=== PATIENT | male | born 1990 | race Caucasian/White ===

== ENCOUNTER → 2016-06-09 | Outpatient (CLI) | payer BC, MEDICAID ==
[2016-06-09 07:54] LABS: BASOPHILS % (AUTO) 0 % (0-2); EOSINOPHILS # (AUTO) 0.2 10^3uL; EOSINOPHILS % (AUTO) 2 % (0-4); LYMPHOCYTES # (AUTO) 4.1 X10^3; MEAN CORPUSCULAR HEMOGLOBIN 30.3 PG (26.0-34.0); MEAN CORPUSCULAR VOLUME 84 FL (80-100); MONOCYTES # (AUTO) 0.7 X10^3; MONOCYTES % (AUTO) 8 % (3-11); NEUTROPHILS # (AUTO) 3.5 X10^3; NEUTROPHILS % (AUTO) 41 % (51-67); PLATELET COUNT 320 10^3uL (150-450); WHITE BLOOD COUNT 8.54 10^3uL (4.0-11.0)
[2016-06-09 08:04] LABS: MEAN CORPUSCULAR HGB CONC 36.1 g/dL (31.0-37.0)
[2016-06-09 08:18] LABS: ALBUMIN 4.8 g/dL (3.4-5.0); ANION GAP 17.9 MEQ/L (3-15); CALCULATED IONIZED CALCIUM 3.9 mg/dL (3.8-4.6); TOTAL PROTEIN 8.4 g/dL (6.4-8.5)
[2016-06-10 16:26] LABS: LEVETIRACETAM LEVEL 6.3 mcg/mL
== END ==
LOC: LAB 07:33
PROVIDERS: ATTEND Nurse Practitioner Family
DX: I10 Essential (primary) hypertension (principal); G40.409 Other generalized epilepsy and epileptic syndromes, not intractable, without status epilepticus; E78.1 Pure hyperglyceridemia
CPT/HCPCS: 36415; 80053; 80061; 80177; 80183; 85025

== ENCOUNTER → 2016-06-11 | Outpatient (CLI) | payer BC, MEDICAID ==
[2016-06-11 08:37] LABS: BILIRUBIN,URINE Negative (Negative); CLARITY,URINE Cloudy; COLOR,URINE Yellow; GLUCOSE, URINE (UA) Negative (Negative); LEUKOCYTE ESTERASE, URINE Trace (Negative); UROBILINOGEN,URINE 0.2 mg/dL (0.2-1.0)
[2016-06-11 09:26] LABS: AMORPHOUS SEDIMENT,UR 3+ /HPF; RBC,URINE None Seen /HPF; URINE CENTRIFUGED VOLUME 12 mL
== END ==
LOC: LAB 08:24
PROVIDERS: ATTEND Nurse Practitioner Family
DX: N39.0 Urinary tract infection, site not specified (principal)
CPT/HCPCS: 81003; 81015; 87077; 87088; 87186

== ENCOUNTER → 2016-09-27 | Outpatient (REF) | payer BC, MEDICAID ==
[~2016-09-27] MED LIST: AC325T PO; ASCO500T6 PO; IBUP-1772 PO; IMIP25TA14 PO; LACT1CAP64 PO; LEVE500T6 PO; METO-274 PO; METO100T6 PO; METR55GE TP; MTP25TSR PO; MULT-35 PO; NITR100C3 PO; OXCA600T PO; OXYB10TA PO; OXYB15TA PO; PS30T PO; TRL300 PO; [UNRECOGNIZED DRUG - CODE] MM
[2016-09-27 15:52] LABS: BASOPHILS % (AUTO) 1 % (0-2); EOSINOPHILS # (AUTO) 0.2 10^3uL; EOSINOPHILS % (AUTO) 2 % (0-4); LYMPHOCYTES # (AUTO) 3.7 X10^3; MEAN CORPUSCULAR HEMOGLOBIN 29.9 PG (26.0-34.0); MEAN CORPUSCULAR VOLUME 83 FL (80-100); MEAN PLATELET VOLUME 7.9 FL (6.0-9.5); MONOCYTES # (AUTO) 0.8 X10^3; MONOCYTES % (AUTO) 9 % (3-11); NEUTROPHILS # (AUTO) 4.5 X10^3; NEUTROPHILS % (AUTO) 49 % (51-67); PLATELET COUNT 347 10^3uL (150-450); WHITE BLOOD COUNT 9.31 10^3uL (4.0-11.0)
[2016-09-27 16:06] LABS: MEAN CORPUSCULAR HGB CONC 35.8 g/dL (31.0-37.0)
== END ==
LOC: LAB 15:40
PROVIDERS: ATTEND Family Medicine
DX: D72.820 Lymphocytosis (symptomatic) (principal)
CPT/HCPCS: 85025